=== PATIENT | female | born 1990 | race Caucasian/White ===

== ENCOUNTER 2017-12-12 09:55 | Day surgery (SDC) | payer OTHER ==
[~2017-12-12] VITALS: Ht 160 cm; Wt 67.4 kg
[2017-12-12] MEDS ORDERED: LACTATED RINGERS 1,000 ML IV SCH (10:34)
[2017-12-12] MEDS ORDERED: TOPI25CA PO (10:36)
[2017-12-12 10:51] VITALS: BP 146/92
[2017-12-12 10:52] LABS: HCG UR SG 1.016 (1.003-1.030)
[2017-12-12] MEDS ORDERED: PLEASE ENTER HEIGHT AND WEIGHT MC SCH (11:00)
[2017-12-12] MEDS ORDERED: LIDOCAINE 1%, 2ML SQ PRN (11:00)
[2017-12-12] MEDS ORDERED: MIDAZOLAM 1 MG/ML, 2ML ONE (11:08)
[2017-12-12] MEDS ORDERED: FENTANYL PF 250 MCG/5ML ONE (11:08)
[2017-12-12] MEDS ORDERED: PROPOFOL 10 MG/ML, 20ML ONE (11:10)
[2017-12-12] MEDS ORDERED: CEFAZOLIN 1,000 MG ONE ×2 (11:11)
[2017-12-12] MEDS ORDERED: SODIUM CHLORIDE 0.9% PF 10ML ONE (11:11)
[2017-12-12] MEDS ORDERED: DEXAMETHASONE 4 MG/ML, 1ML ONE ×2 (11:12)
[2017-12-12] MEDS ORDERED: ONDANSETRON 2MG/ML, 2ML ONE (11:12)
[2017-12-12] MEDS ORDERED: MEPERIDINE/PF 25MG/0.5ML IVPush PRN (11:30)
[2017-12-12] MEDS ORDERED: FENTANYL PF 100 MCG/2ML IV PRN (11:30)
[2017-12-12] MEDS ORDERED: ONDANSETRON 2MG/ML, 2ML IVPush PRN (11:30)
[2017-12-12] MEDS ORDERED: ACETAMINOPHEN 325 MG TABLET PO PRN (11:30)
[2017-12-12] MEDS ORDERED: HYDROmorphone 1 MG/ML, 1ML IV PRN (11:30)
[2017-12-12] MEDS ORDERED: OXYcodone 5 MG/5 ML ORAL.SOL UDC PO PRN (11:30)
[2017-12-12] MEDS ORDERED: PROMETHAZINE 25 MG/ML, 1ML IV PRN (11:30)
[2017-12-12] MEDS ORDERED: EPINEPHRINE 1 MG/ML, 1ML ONE (11:37)
[2017-12-12] MEDS ORDERED: BUPIVACAINE/PF 0.25% ONE (11:37)
[2017-12-12] MEDS ORDERED: THROMBIN 5,000 UNIT VIAL TP ONE (12:34)
[2017-12-12] MEDS ORDERED: BUPIVACAINE/PF-EPI 0.25% 1:200K INFIL ONE (12:35)
[2017-12-12] MEDS ORDERED: OXYcodone 5 MG/5 ML ORAL.SOL UDC ONE (13:08)
[2017-12-12] MEDS ORDERED: ACETAMINOPHEN 650 MG/20.3 ML UDC ONE (13:08)
== END 2017-12-12 15:15 | disposition home or self-care (01) ==
LOC: OUT 09:55
PROVIDERS: ATTEND Obstetrics & Gynecology
DX: N75.0 Cyst of Bartholin's gland (principal); G43.909 Migraine, unspecified, not intractable, without status migrainosus; Z98.890 Other specified postprocedural states
CPT/HCPCS: 56440; 81025; 87070; 87075; 87205; 88304; J0171; J0690; J1100; J2250; J2405; J2704; J3010; J3490; J7120